=== PATIENT | male | born 1965 | race Hispanic/Latino ===

== ENCOUNTER 2020-03-19 08:05 | Day surgery (SDC) | payer SELFPAY ==
[~2020-03-19] VITALS: Ht 170.2 cm; Wt 96.6 kg
[~2020-03-19 08:05] MED LIST: SODIUM CHLORIDE 0.9% 1000ML 1,000 ML IV ONE
[2020-03-19 09:08] VITALS: BP 155/98
[2020-03-19] MEDS ORDERED: PROPOFOL 10 MG/ML 20ML VIAL IV ONE ×2 (09:25→09:27)
[2020-03-19 09:50] VITALS: BP 113/72
[2020-03-19 09:55] VITALS: BP 121/81
[2020-03-19 10:04] VITALS: BP 119/79
== END 2020-03-19 10:32 | disposition home or self-care (01) ==
LOC: ENDO 08:05 → DAH 08:05 → ENDO 10:32
PROVIDERS: ATTEND Internal Medicine
DX: R93.3 Abnormal findings on diagnostic imaging of other parts of digestive tract (principal); K31.89 Other diseases of stomach and duodenum; K21.9 Gastro-esophageal reflux disease without esophagitis
CPT/HCPCS: 43236; 43238; 43239; A4215 ×2; A4221; A4222; A4223; A4606; A4620; A4663; J2704 ×2; J7030